=== PATIENT | female | born 2000 | race Caucasian/White ===

== ENCOUNTER → 2025-05-30 11:20 | Outpatient (REF) | payer BC, OTHER, SELFPAY ==
--- NOTE | 2025-05-30 16:34 | EEG.RPT ---
Electroencephalogram Report
Recording
Date of EE05/30/25
Type of EEG: Routine
Length of EEG recordin minutes
Done with Video Recording: Yes
Patient Status: Outpatient
Recording Conditions: Awake and Drowsy
Hyperventilation Performed: No
Photic Stimulation Performed: Yes
Report
LESS THAN 1 HOUR REPORT
LESS THAN 1 HOUR EEG INTERPRETATION:
Moderately abnormal EEG due to frequent, medium to high amplitude left temporal sharp waves
CLINICAL CORRELATION:
This study was suggestive of a focal abnormality in the left temporal lobe which did correlate with the patient's twitching. No electrical seizures were recorded.
Clinical correlation is advised.
METHODS:
A 21 channel digitized electroencephalogram (EEG) was performed. The 10/20 international system of electrode placement was used with ECG and lateral/vertical eye movements recorded. The Sencha quantitative EEG system was utilized.
ELECTROENCEPHALOGRAPHER IMPRESSION(S):
Quality of study
Good
Background
In maximal wakefulness, there was a medium amplitude anterior-posterior voltage gradient of alpha frequency.
There were no significant asymmetries of background activity noted.
Sleep
Drowsiness present
Hyperventilation
Not performed
Photic Stimulation
No activation of the record
ECG
Unremarkable
Abnormal EEG Activity
Frequent, medium to high amplitude left temporal sharp waves (T5 maximal) which were demonstrated in wakefulness, drowsiness and did not significantly change with photic stimulation
== END ==
LOC: EEG 11:20
PROVIDERS: ATTENDING PHYSICIAN Psychiatry & Neurology Neurology; FAMILY PHYSICIAN Internal Medicine
DX: R25.9 Unspecified abnormal involuntary movements (principal)
CPT/HCPCS: 95816